=== PATIENT | male | born 1970 ===

== ENCOUNTER 2016-11-21 00:34 | Emergency (ER) | payer SELFPAY ==
[2016-11-21 00:42] VITALS: BP 117/90; PULSE 96; RESP 16; TEMP 98.5; O2SAT 100
--- NOTE | 2016-11-21 01:02 | ED PDOC ---
HPI: Head Injury Time Seen by Provider: 11/21/16 00:41 Chief Complaint (Nursing): Trauma Chief Complaint (Provider): head injury History Per: Patient History/Exam Limitations: intoxication Injury Occurred (Timing): Just Before Arrival Patient States: Fell Striking Head Additional History Per: Patient Additional Complaint(s): 46 y/o male brought in by EMS for eval of head injury sustained prior to arrival. Patient states he drank 10 beers tonight, was trying to go home and fell down the stairs leading to his apartment. Patient denies LOC, headache, dizziness,nausea/vomiting, extremity numbness/weakness, neck/back pain, chest pain, abdominal pain, or psychiatric complaints. Past Medical History Reviewed: Historical Data, Nursing Documentation, Vital Signs Vital Signs: Last Vital Signs Temp 98.5 F 11/21/16 00:39 Pulse 96 H 11/21/16 00:39 Resp 16 11/21/16 00:39 BP 117/90 11/21/16 00:39 Pulse Ox 100 11/21/16 00:39 - Medical History PMH: Depression, Seizures Denies: Diabetes, Hepatitis, HIV, HTN, Chronic Kidney Disease, Sexually Transmitted Disease - Family History Family History: States: No Known Family Hx - Social History Current smoker - smoking cessation education provided: Yes Alcohol: > 2 Drinks/Day Drugs: Denies - Immunization History Hx Tetanus Toxoid Vaccination: No Hx Influenza Vaccination: No Hx Pneumococcal Vaccination: No - Home Medications Home Medications: Ambulatory Orders Medication Instructions Recorded Folic Acid 1 mg PO DAILY 09/28/14 Magnesium Oxide 400 mg PO DAILY 09/28/14 Sod Phos Di, [place]/K Phos [place]illas 1 tab PO DAILY 09/28/14 [Phospha 250 Neutral 155 mg-852 mg-130 mg] ARIPiprazole [Abilify] 5 mg PO HS #30 tab 10/02/14 Multivitamins [Hexavitamin] 1 tab PO DAILY #30 tab 10/02/14 Naltrexone [Revia] 50 mg PO DAILY #30 tab 10/02/14 Thiamine [Vitamin B1 Tab] 100 mg PO DAILY #30 tab 10/02/14 traZODone [Desyrel] 50 mg PO HS PRN #30 tab 10/02/14 Ibuprofen [Motrin Tab] 800 mg PO Q8 PRN #20 tab 05/26/15 - Allergies Allergies/Adverse Reactions: Allergies Allergy/AdvReac Type Severity Reaction Status Date / Time No Known Allergies Allergy Verified 10/11/14 19:06 Review of Systems ROS Statement: Except As Marked, All Systems Reviewed And Found Negative Skin: Positive for: Bruising Physical Exam - Reviewed Nursing Documentation Reviewed: Yes Vital Signs Reviewed: Yes - Physical Exam Appears: Positive for: Well, Non-toxic, No Acute Distress Head Exam: Negative for: ATRAUMATIC (frontal scalp hematoma with abrasion to left frontal scalp) Skin: Positive for: Normal Color Eye Exam: Positive for: EOMI, PERRL ENT: Positive for: Normal ENT Inspection, Other (abrasion to nasal bridge with + swelling. No septal hematoma b/l). Negative for: Nasal Congestion, Pharyngeal Erythema Cardiovascular/Chest: Positive for: Regular Rate, Rhythm Respiratory: Positive for: Normal Breath Sounds Gastrointestinal/Abdominal: Positive for: Normal Exam Back: Positive for: Normal Inspection Extremity: Positive for: Normal ROM Neurologic/Psych: Positive for: Alert, Oriented - Laboratory Results Result Diagrams: 11/21/16 01:18 11/21/16 01:18 - ECG O2 Sat by Pulse Oximetry: 100 - Progress ED Course And Treament: labs, CT head, CT facial bones, CT cspine ordered EXAM: CT Head Without Intravenous Contrast EXAM DATE/TIME: 11/21/2016 12:59 AM CLINICAL HISTORY: 46 years old, male; Injury or trauma; Fall; Additional info: ETOH, fall TECHNIQUE: Axial computed tomography images of the head/brain without intravenous contrast. All CT scans at this facility use one or more dose reduction techniques, viz.: automated exposure control; ma/kV adjustment per patient size (including targeted exams where dose is matched to indication; i.e. head); or iterative reconstruction technique. Coronal and sagittal reformatted images were created and reviewed. COMPARISON: Prior head CT of 10/11/2014 FINDINGS: BRAIN: Focal areas of low density again seen in the basal ganglia bilaterally, most compatible with bilateral old/chronic lacunar infarcts. Areas of hypodensity seen in the white matter bilaterally, nonspecific in appearance, but most likely representing chronic small vessel ischemic changes. Physiologic basal ganglia calcification. Mild to moderate, diffuse cortical atrophy and ventriculomegaly, which appear somewhat advanced for age. Recommend clinical correlation. No significant acute abnormality identified. No acute hemorrhage seen within the brain. No acute extra-axial fluid collections visualized. No evidence of significant mass effect within the brain. VENTRICLES: See above. BONES/JOINTS: No acute fractures or other acute bony abnormality noted. SOFT TISSUES: Soft tissue swelling in the left supraorbital scalp. SINUSES: Visualized paranasal sinuses appear clear. MASTOID AIR CELLS: Mastoid air cells appear clear. IMPRESSION: - No evidence of acute intracranial injury or fractures. - See above for remaining findings. EXAM: CT Maxillofacial Without Intravenous Contrast EXAM DATE/TIME: 11/21/2016 12:59 AM CLINICAL HISTORY: 46 years old, male; Injury or trauma; Fall; Initial encounter; Abrasion; Forehead and nose; Additional info: ETOH, fall TECHNIQUE: Axial computed tomography images of the face without intravenous contrast. All CT scans at this facility use one or more dose reduction techniques, viz.: automated exposure control; ma/kV adjustment per patient size (including targeted exams where dose is matched to indication; i.e. head); or iterative reconstruction technique. Coronal and sagittal reformatted images were created and reviewed. COMPARISON: None is available. FINDINGS: BONES/JOINTS: Chronic-deformity of the left nasal bone, most compatible with an old fracture. Bony structures appear demineralized. No acute fractures are seen. No evidence of acute dislocation. SOFT TISSUES: Soft tissue swelling in the left supraorbital scalp. ORBITS: Intraorbital soft tissues appear grossly intact. No evidence of significant orbital emphysema. SINUSES: Mild mucosal thickening in the bilateral maxillary sinuses. No evidence of sinus fluid levels. IMPRESSION: - No acute facial bone fractures identified. - See above for remaining findings EXAM: CT Cervical Spine Without Intravenous Contrast EXAM DATE/TIME: 11/21/2016 12:59 AM CLINICAL HISTORY: 46 years old, male; Injury or trauma; Fall; Initial encounter; Blunt trauma; Additional info: ETOH, fall TECHNIQUE: Axial computed tomography images of the cervical spine without intravenous contrast. All CT scans at this facility use one or more dose reduction techniques, viz.: automated exposure control; ma/kV adjustment per patient size (including targeted exams where dose is matched to indication; i.e. head); or iterative reconstruction technique. Coronal and sagittal reformatted images were created and reviewed. COMPARISON: No relevant prior studies available. FINDINGS: VERTEBRAE: No acute cervical spine fractures visualized. No evidence of significant vertebral subluxation. Normal alignment of the facet joints. DISCS/SPINAL CANAL/NEURAL FORAMINA: Moderate to severe multilevel degenerative disc disease, greatest at the C6-7 level. SOFT TISSUES: No acute abnormality of the visualized soft tissues is seen. LUNG APICES: Emphysematous changes in the lung apices. No pneumothorax seen. IMPRESSION: - No acute cervical spine fractures identified. - See above for remaining findings. Abrasions cleaned with normal saline, bacitracin and bandages applied 3:40 Patient awake, alert, oriented x3. Ambulating steady gait. Stable for discharge. ADvised ice, neosporin, follow up PMD 2-3 days. Return to ED for worsening/concerning symptoms. Disposition - Clinical Impression Clinical Impression: Head injury, Alcohol intoxication, Anemia, Facial abrasion - Patient ED Disposition Is Patient to be Admitted: No Counseled Patient/Family Regarding: Studies Performed, Diagnosis, Need For Followup - Disposition Referrals: [facility] [Outside] Disposition: Routine/Home Disposition Time: 03:32 Condition: IMPROVED Instructions: Head Injury (ED), Abuse of Alcohol (ED), Abrasion (ED), Anemia ( ED)
[2016-11-21 01:25] LABS: BASO # 0.1 K/uL (0.0-0.2); BASO % 1.5 % (0.0-2.0); EOS # 0.2 K/uL (0.0-0.7); EOS % 2.4 % (0.0-4.0); HEMATOCRIT 28.7 % (35.0-51.0); LYMPH % 36.7 % (20.0-40.0); MEAN CELL VOLUME 78.9 fl (80.0-94.0); MEAN CORPUSCULAR HEMOGLOBIN 25.2 pg (27.0-31.0); MEAN CORPUSCULAR HGB CONC 31.9 g/dL (33.0-37.0); MEAN PLATELET VOLUME 7.2 fl (7.2-11.7); MONO # 0.7 K/uL (0.0-0.8); MONO % 8.2 % (0.0-10.0); NEUT # 4.2 K/uL (1.8-7.0); NEUT % 51.2 % (50.0-75.0); NRBC % 0.1 % (0.0-0.0); RED CELL DISTRIBUTION WIDTH 19.6 % (11.5-14.5); WHITE BLOOD COUNT 8.3 K/uL (4.8-10.8)
[2016-11-21 01:34] LABS: ALB/GLOB RATIO 1.5 (1.0-2.1); ALKALINE PHOSPHATASE 77 U/L (38-126); ALT/SGPT 31 U/L (21-72); AST/SGOT 40 U/L (17-59); BILIRUBIN,TOTAL 0.4 mg/dl (0.2-1.3); BLOOD UREA NITROGEN 6 mg/dl (9-20); CARBON DIOXIDE 22 mmol/L (22-30); CHLORIDE 99 mmol/L (98-107); GFR AFRICAN-AMERICAN > 60; GLUCOSE,RANDOM 94 mg/dL (75-110); POTASSIUM 3.9 MMOL/L (3.6-5.0); SODIUM 136 mmol/l (132-148); TOTAL PROTEIN 7.5 G/DL (6.3-8.2)
[2016-11-21 01:44] LABS: ALCOHOL SERUM 328 mg/dl (0-10)
--- NOTE | 2016-11-21 02:34 | CT ---
EXAM: CT Maxillofacial Without Intravenous Contrast EXAM DATE/TIME: 11/21/2016 12:59 AM CLINICAL HISTORY: 46 years old, male; Injury or trauma; Fall; Initial encounter; Abrasion; Forehead and nose; Additional info: ETOH, fall TECHNIQUE: Axial computed tomography images of the face without intravenous contrast. All CT scans at this facility use one or more dose reduction techniques, viz.: automated exposure control; ma/kV adjustment per patient size (including targeted exams where dose is matched to indication; i.e. head); or iterative reconstruction technique. Coronal and sagittal reformatted images were created and reviewed. COMPARISON: None is available. FINDINGS: BONES/JOINTS: Chronic-deformity of the left nasal bone, most compatible with an old fracture. Bony structures appear demineralized. No acute fractures are seen. No evidence of acute dislocation. SOFT TISSUES: Soft tissue swelling in the left supraorbital scalp. ORBITS: Intraorbital soft tissues appear grossly intact. No evidence of significant orbital emphysema. SINUSES: Mild mucosal thickening in the bilateral maxillary sinuses. No evidence of sinus fluid levels. IMPRESSION: - No acute facial bone fractures identified. - See above for remaining findings.
--- NOTE | 2016-11-21 02:39 | CT ---
EXAM: CT Head Without Intravenous Contrast EXAM DATE/TIME: 11/21/2016 12:59 AM CLINICAL HISTORY: 46 years old, male; Injury or trauma; Fall; Additional info: ETOH, fall TECHNIQUE: Axial computed tomography images of the head/brain without intravenous contrast. All CT scans at this facility use one or more dose reduction techniques, viz.: automated exposure control; ma/kV adjustment per patient size (including targeted exams where dose is matched to indication; i.e. head); or iterative reconstruction technique. Coronal and sagittal reformatted images were created and reviewed. COMPARISON: Prior head CT of 10/11/2014 FINDINGS: BRAIN: Focal areas of low density again seen in the basal ganglia bilaterally, most compatible with bilateral old/chronic lacunar infarcts. Areas of hypodensity seen in the white matter bilaterally, nonspecific in appearance, but most likely representing chronic small vessel ischemic changes. Physiologic basal ganglia calcification. Mild to moderate, diffuse cortical atrophy and ventriculomegaly, which appear somewhat advanced for age. Recommend clinical correlation. No significant acute abnormality identified. No acute hemorrhage seen within the brain. No acute extra-axial fluid collections visualized. No evidence of significant mass effect within the brain. VENTRICLES: See above. BONES/JOINTS: No acute fractures or other acute bony abnormality noted. SOFT TISSUES: Soft tissue swelling in the left supraorbital scalp. SINUSES: Visualized paranasal sinuses appear clear. MASTOID AIR CELLS: Mastoid air cells appear clear. IMPRESSION: - No evidence of acute intracranial injury or fractures. - See above for remaining findings.
--- NOTE | 2016-11-21 02:45 | CT ---
EXAM: CT Cervical Spine Without Intravenous Contrast EXAM DATE/TIME: 11/21/2016 12:59 AM CLINICAL HISTORY: 46 years old, male; Injury or trauma; Fall; Initial encounter; Blunt trauma; Additional info: ETOH, fall TECHNIQUE: Axial computed tomography images of the cervical spine without intravenous contrast. All CT scans at this facility use one or more dose reduction techniques, viz.: automated exposure control; ma/kV adjustment per patient size (including targeted exams where dose is matched to indication; i.e. head); or iterative reconstruction technique. Coronal and sagittal reformatted images were created and reviewed. COMPARISON: No relevant prior studies available. FINDINGS: VERTEBRAE: No acute cervical spine fractures visualized. No evidence of significant vertebral subluxation. Normal alignment of the facet joints. DISCS/SPINAL CANAL/NEURAL FORAMINA: Moderate to severe multilevel degenerative disc disease, greatest at the C6-7 level. SOFT TISSUES: No acute abnormality of the visualized soft tissues is seen. LUNG APICES: Emphysematous changes in the lung apices. No pneumothorax seen. IMPRESSION: - No acute cervical spine fractures identified. - See above for remaining findings.
== END 2016-11-21 05:12 | disposition home or self-care (01) ==
LOC: H.ER 00:34
DX: S00.81XA Abrasion of other part of head, initial encounter (principal); F10.129 Alcohol abuse with intoxication, unspecified; Z86.59 Personal history of other mental and behavioral disorders; W10.9XXA Fall (on) (from) unspecified stairs and steps, initial encounter
CPT/HCPCS: 70450; 70486; 72125; 80053; 82948; 85025; 99283; G0480